=== PATIENT | female | born 1945 | race Caucasian/White ===

== ENCOUNTER 2021-01-19 10:25 | Outpatient (CLI) | payer MEDICARE, OTHER | END 2021-01-19 10:26 | disposition home or self-care (01) | LOC: CSHMAMMO 10:25 | PROVIDERS: ATTEND Family Medicine | DX: Z12.31 Encounter for screening mammogram for malignant neoplasm of breast (principal) | CPT/HCPCS: 77063; 77067 ==

== ENCOUNTER 2022-01-21 10:00 | Outpatient (CLI) | payer MEDICARE, OTHER | END 2022-01-21 10:01 | disposition home or self-care (01) | LOC: CSHMAMMO 10:00 | PROVIDERS: ATTEND Family Medicine | DX: Z12.31 Encounter for screening mammogram for malignant neoplasm of breast (principal); Z80.3 Family history of malignant neoplasm of breast | CPT/HCPCS: 77063; 77067 ==

== ENCOUNTER 2022-07-16 18:51 | Emergency (ER) | payer OTHER, MEDICARE | END 2022-07-16 21:14 | disposition home or self-care (01) | LOC: CSHERS 18:51 | DX: S00.31XA Abrasion of nose, initial encounter (principal); M25.561 Pain in right knee; W01.0XXA Fall on same level from slipping, tripping and stumbling without subsequent striking against object, initial encounter ==

== ENCOUNTER 2023-03-29 11:38 | Outpatient (CLI) | payer MEDICARE, OTHER | END 2023-03-29 11:39 | disposition home or self-care (01) | LOC: CSHMAMMO 11:38 | PROVIDERS: ATTEND Family Medicine | DX: Z12.31 Encounter for screening mammogram for malignant neoplasm of breast (principal); Z80.3 Family history of malignant neoplasm of breast | CPT/HCPCS: 77063; 77067 ==

== ENCOUNTER 2023-10-06 09:24 | Outpatient (CLI) | payer MEDICARE, OTHER | END 2023-10-06 09:25 | disposition home or self-care (01) | LOC: CSHRAD 09:24 | PROVIDERS: ATTEND Internal Medicine Rheumatology | DX: M17.12 Unilateral primary osteoarthritis, left knee (principal); M23.42 Loose body in knee, left knee ==

== ENCOUNTER 2024-04-01 10:16 | Outpatient (CLI) | payer MEDICARE, OTHER | END 2024-04-01 10:17 | disposition home or self-care (01) | LOC: CSHMAMMO 10:16 | PROVIDERS: ATTEND Family Medicine | DX: Z12.31 Encounter for screening mammogram for malignant neoplasm of breast (principal); Z80.3 Family history of malignant neoplasm of breast | CPT/HCPCS: 77063; 77067 ==

== ENCOUNTER 2024-09-25 14:56 | Outpatient (CLI) | payer MEDICARE, OTHER | END 2024-09-25 14:57 | disposition home or self-care (01) | LOC: CSHMRI 14:56 | PROVIDERS: ATTEND Family Medicine | DX: M47.26 Other spondylosis with radiculopathy, lumbar region (principal); M25.48 Effusion, other site | CPT/HCPCS: 72148 ==

== ENCOUNTER 2025-04-02 11:37 | Outpatient (CLI) | payer MEDICARE, OTHER | END 2025-04-02 11:38 | disposition home or self-care (01) | LOC: CSHMAMMO 11:37 | PROVIDERS: ATTEND Family Medicine | DX: Z12.31 Encounter for screening mammogram for malignant neoplasm of breast (principal); Z80.3 Family history of malignant neoplasm of breast | CPT/HCPCS: 77063; 77067 ==